=== PATIENT | female | born 1950 | race Hispanic/Latino ===

== ENCOUNTER 2017-04-19 11:16 | Inpatient (IN) | payer MEDICARE ==
[~2017-04-19] VITALS: Ht 165.1 cm; Wt 90.7 kg
[~2017-04-19 11:16] MED LIST: AMOXICILLIN500 MG PO; DICLOFENAC SODI75 MG PO; FLEXERIL PO; LOSARTAN POTAS100 MG PO; MUCINEX600 MG PO; TRIAMCINOLON0.11 EX; ULTRAM50 M1 PO; ZITHROMAX250 MG PO
[2017-04-19] MEDS ORDERED: DICLOFENAC SODI75 MG PO (14:00)
[2017-04-19] MEDS ORDERED: CETIRIZINE10 MG PO (14:01)
[2017-05-05] VITALS (8 sets, daily range): BP systolic 136–165; BP diastolic 53–69
[2017-05-05] MEDS ORDERED: FLOVENT HF44 MCG/ACT (06:56)
[2017-05-06 04:00] VITALS: BP 149/58
[2017-05-06 06:41] LABS: HEMATOCRIT 29.5 % (37.0-47.0); HEMOGLOBIN 9.7 g/dl (12.0-16.0)
[2017-05-06 09:12] VITALS: BP 154/69
[2017-05-06 16:00] VITALS: BP 132/57
[2017-05-06 20:00] VITALS: BP 137/52
[2017-05-07] VITALS: BP 134/67
[2017-05-07 05:05] VITALS: BP 136/75
[2017-05-07 05:14] LABS: HEMOGLOBIN 10.3 g/dl (12.0-16.0)
[2017-05-07 05:32] LABS: ANION GAP 14 (6-22 (CALC)); BUN 11 mg/dL (8-23); BUN/CREATININE RATIO 18 (12-20 (CALC)); CALCIUM 8.1 mg/dL (8.4-10.2); CARBON DIOXIDE 28 mmol/l (22-30); CHLORIDE 102 mmol/l (95-108); CREATININE 0.6 mg/dL (0.5-1.0); GFR > 60 ML/MIN (>=60 (CALC)); GFR FOR AFR.AMER. > 60 ML/MIN (>=60 (CALC)); GLUCOSE 129 mg/dL (82-115); MAGNESIUM 2.1 mg/dL (1.6-2.3); POTASSIUM 4.1 mmol/l (3.5-5.1); SODIUM 139 mmol/l (137-146)
[2017-05-07 07:25] VITALS: BP 147/60
[2017-05-07 16:30] VITALS: BP 153/68
[2017-05-07 19:30] VITALS: BP 109/48
[2017-05-07 23:47] VITALS: BP 121/59
[2017-05-08 04:58] VITALS: BP 134/64
[2017-05-08 05:01] LABS: HEMATOCRIT 30.3 % (37.0-47.0); HEMOGLOBIN 9.9 g/dl (12.0-16.0); MEAN CELL VOLUME 98.1 fL CALC (80.0-100.0); MEAN CORPUSCULAR HGB CONC 32.7 g/L CALC (32.0-36.0); RED BLOOD COUNT 3.09 mill/uL (4.20-5.60); RED CELL DISTRI WIDTH 13.5 % (11.5-15.5)
[2017-05-08 05:26] LABS: ANION GAP 11 (6-22 (CALC)); BUN 10 mg/dL (8-23); BUN/CREATININE RATIO 14 (12-20 (CALC)); CALCIUM 8.1 mg/dL (8.4-10.2); CARBON DIOXIDE 29 mmol/l (22-30); CHLORIDE 102 mmol/l (95-108); CREATININE 0.7 mg/dL (0.5-1.0); GFR > 60 ML/MIN (>=60 (CALC)); GFR FOR AFR.AMER. > 60 ML/MIN (>=60 (CALC)); GLUCOSE 110 mg/dL (82-115); POTASSIUM 4.2 mmol/l (3.5-5.1); SODIUM 137 mmol/l (137-146)
[2017-05-08 07:34] VITALS: BP 125/55
[2017-05-08 11:15] LABS: URINE BILIRUBIN - DIPSTICK NEGATIVE (NEGATIVE); URINE BLOOD DIPSTICK TRACE-INTACT (NEGATIVE); URINE CLARITY CLEAR; URINE COLOR YELLOW; URINE GLUCOSE - DIPSTICK NEGATIVE (NEGATIVE); URINE KETONE NEGATIVE (NEGATIVE); URINE LEUK ESTERASE NEGATIVE (Negative); URINE NITRITE - DIPSTICK NEGATIVE (Negative); URINE PROTEIN - DIPSTICK NEGATIVE (NEG-TRACE); URINE SPECIFIC GRAVITY <=1.005; URINE UROBILINOGEN - DIPSTICK 0.2 E.U./dL (0.2)
[2017-05-08 12:42] VITALS: BP 143/63
[2017-05-08 16:34] VITALS: BP 135/59
[2017-05-08 19:30] VITALS: BP 130/60
[2017-05-09 05:28] VITALS: BP 154/60
[2017-05-09 05:50] LABS: HEMATOCRIT 28.4 % (37.0-47.0); HEMOGLOBIN 9.2 g/dl (12.0-16.0); IMMATURE GRANULOCYTES 0.4 % (0.0-1.0); MEAN CELL VOLUME 97.6 fL CALC (80.0-100.0); MEAN CORPUSCULAR HGB 31.6 pG CALC (26.0-32.0); MEAN CORPUSCULAR HGB CONC 32.4 g/L CALC (32.0-36.0); NEUT# 2.81 thou/uL (2.00-7.15); RED BLOOD COUNT 2.91 mill/uL (4.20-5.60); RED CELL DISTRI WIDTH 13.3 % (11.5-15.5)
[2017-05-09 05:57] LABS: ANION GAP 13 (6-22 (CALC)); BUN 9 mg/dL (8-23); BUN/CREATININE RATIO 15 (12-20 (CALC)); CALCIUM 8.1 mg/dL (8.4-10.2); CARBON DIOXIDE 28 mmol/l (22-30); CHLORIDE 104 mmol/l (95-108); CREATININE 0.6 mg/dL (0.5-1.0); GFR > 60 ML/MIN (>=60 (CALC)); GFR FOR AFR.AMER. > 60 ML/MIN (>=60 (CALC)); GLUCOSE 106 mg/dL (82-115); MAGNESIUM 2.3 mg/dL (1.6-2.3); POTASSIUM 4.3 mmol/l (3.5-5.1); SODIUM 140 mmol/l (137-146)
[2017-05-09 07:33] VITALS: BP 157/58
[2017-05-09] MEDS ORDERED: PANTOPRAZOLE SO40 M1 PO (09:59)
[2017-05-09] MEDS ORDERED: ASPIRIN EC325 MG PO (09:59)
[2017-05-09] MEDS ORDERED: ZOFRAN ODT4 MG PO (09:59)
[2017-05-09] MEDS ORDERED: VITAMIN D2000 UNI2 PO (09:59)
[2017-05-09 11:45] VITALS: BP 131/60
== END 2017-05-09 12:47 | DRG 470 ==
LOC: MS2 05-05 06:41 → MS3 05-05 12:30 → MS2 05-06 10:05
PROVIDERS: Internal Medicine; Nurse Practitioner Family; ADMIT Orthopaedic Surgery; ATTEND Internal Medicine
PROC: 0SRC0J9 Replacement of Right Knee Joint with Synthetic Substitute, Cemented, Open Approach (ICD-10-PCS; principal; 2017-05-05)
DX: M17.0 Bilateral primary osteoarthritis of knee (principal); I10 Essential (primary) hypertension; K21.9 Gastro-esophageal reflux disease without esophagitis; E66.9 Obesity, unspecified; R73.01 Impaired fasting glucose; R50.82 Postprocedural fever; E55.9 Vitamin D deficiency, unspecified; K59.00 Constipation, unspecified; H72.91 Unspecified perforation of tympanic membrane, right ear; Z68.33 Body mass index [BMI] 33.0-33.9, adult
CPT/HCPCS: J2270

== ENCOUNTER 2017-10-21 11:21 | Emergency (ER) | payer MEDICARE ==
[~2017-10-21] VITALS: Ht 165.1 cm; Wt 90.0 kg
[~2017-10-21 11:21] MED LIST changes: +ASPIRIN EC325 MG PO; +CETIRIZINE10 MG PO; +FLOVENT HF44 MCG/ACT; +PANTOPRAZOLE SO40 M1 PO; +VITAMIN D2000 UNI2 PO; +ZOFRAN ODT4 MG PO
[2017-10-21] MEDS ORDERED: HYZAAR1 TA2 PO (12:09)
[2017-10-21 12:55] LABS: HEMOGLOBIN 10.6 g/dl (12.0-16.0); IMMATURE GRANULOCYTES 0.3 % (0.0-1.0); MEAN CORPUSCULAR HGB CONC 32.1 g/L CALC (32.0-36.0); NEUT# 4.06 thou/uL (2.00-7.15); RED BLOOD COUNT 3.66 mill/uL (4.20-5.60); RED CELL DISTRI WIDTH 14.3 % (11.5-15.5)
[2017-10-21 12:56] LABS: MEAN CELL VOLUME 90.2 fL CALC (80.0-100.0)
[2017-10-21 13:22] LABS: ALBUMIN 3.9 g/dL (3.2-5.0); ALKALINE PHOSPHATASE 139 u/l (38-126); ANION GAP 20 (6-22 (CALC)); BILIRUBIN, TOTAL 0.4 mg/dL (0.0-1.4); BUN 19 mg/dL (8-23); BUN/CREATININE RATIO 23 (12-20 (CALC)); C-REACTIVE PROTEIN 4.9 mg/dL (0-0.9); CARBON DIOXIDE 25 mmol/l (22-30); CHLORIDE 100 mmol/l (95-108); CREATININE 0.8 mg/dL (0.5-1.0); GFR > 60 ML/MIN (>=60 (CALC)); GFR FOR AFR.AMER. > 60 ML/MIN (>=60 (CALC)); POTASSIUM 4.2 mmol/l (3.5-5.1); SGOT/AST 24 u/l (9-36); SGPT/ALT 23 u/l (11-66); SODIUM 141 mmol/l (137-146); TOTAL PROTEIN 8.4 g/dL (6.3-8.2)
[2017-10-21] MEDS ORDERED: CLEOCIN150 MG PO (14:14)
[2017-10-21] MEDS ORDERED: TORADOL PO (14:14)
[2017-10-21 14:26] VITALS: BP 139/64
== END 2017-10-21 14:26 | disposition home or self-care (01) ==
LOC: ED 11:21
PROVIDERS: Emergency Medicine
DX: L03.115 Cellulitis of right lower limb (principal); I10 Essential (primary) hypertension; Z98.890 Other specified postprocedural states

== ENCOUNTER → 2018-09-26 | Outpatient (REF) | payer MEDICARE ==
[~2018-09-26] MED LIST changes: +CLEOCIN150 MG PO; +HYZAAR1 TA2 PO; +TORADOL PO
== END | disposition home or self-care (01) ==
LOC: MAMMO 14:22
PROVIDERS: ATTEND Family Medicine
DX: N64.4 Mastodynia (principal)

== ENCOUNTER 2024-05-03 16:11 | Emergency (ER) | payer MEDICARE ==
[2024-05-03] VITALS (14 sets, daily range): BP systolic 125–198; BP diastolic 46–110
[~2024-05-03] VITALS: Ht 165.1 cm; Wt 81.0 kg
[~2024-05-03 16:11] MED LIST changes: +CORTISPORIN OTI10 M2 AU; +OMEPRAZOLE DR40 MG PO; +TOPROL XL25 M1 PO
[2024-05-03 16:43] LABS: BASO% 0.6 % (0-3); EOS% 1.5 % (0-8); HEMATOCRIT 32.9 % (37.0-47.0); HEMOGLOBIN 10.9 g/dl (12.0-16.0); MEAN CELL VOLUME 96.5 fL CALC (80.0-100.0); MEAN CORPUSCULAR HGB CONC 33.1 g/dL CAL (32.0-36.0); MONO% 10.3 % (2-13); NEUT# 3.49 thou/uL (2.00-7.15); NEUT% 66.6 % (42-76); RED BLOOD COUNT 3.41 mill/uL (4.20-5.60); RED CELL DISTRI WIDTH 13.2 % (11.5-15.5)
[2024-05-03 16:56] LABS: ALBUMIN 4.6 g/dL (3.2-5.0); ALKALINE PHOSPHATASE 122 u/l (38-126); ANION GAP 10 (6-22 (CALC)); BUN 22 mg/dL (8-23); BUN/CREATININE RATIO 27 (12-20 (CALC)); CARBON DIOXIDE 23 mmol/l (22-30); CHLORIDE 97 mmol/l (95-108); CREATININE 0.8 mg/dL (0.5-1.0); ESTIMATED GFR 76 ML/MIN (>=90 (CALC)); LIPASE 150 u/l (23-300); POTASSIUM 4.4 mmol/l (3.5-5.1); SGOT/AST 34 u/l (9-36); SODIUM 125 mmol/l (137-146); TOTAL PROTEIN 8.9 g/dL (6.3-8.2)
[2024-05-03 16:57] LABS: BILIRUBIN, TOTAL 0.7 mg/dL (0.02-1.3)
[2024-05-03] MEDS ORDERED: SODIUM CHLORIDE 0.9% 1,000 ML IV ONE (17:55)
[2024-05-03 17:57] LABS: URINE BILIRUBIN - DIPSTICK Negative (NEGATIVE); URINE BLOOD DIPSTICK Negative (NEGATIVE); URINE GLUCOSE - DIPSTICK Negative (NEGATIVE); URINE KETONE Negative (NEGATIVE); URINE LEUK ESTERASE Negative (NEGATIVE); URINE NITRITE - DIPSTICK Negative (Negative); URINE PH 5.5 (4.5-8.0); URINE PROTEIN - DIPSTICK Negative (NEG-TRACE); URINE SPECIFIC GRAVITY <=1.005; URINE UROBILINOGEN - DIPSTICK 0.2 E.U./dL (0.2)
[2024-05-03 17:59] LABS: URINE COLOR Yellow
[2024-05-03] MEDS ORDERED: KETOROLAC TROMETHAMINE 15 MG/ML SDV IV ONE (18:30)
[2024-05-03] MEDS ORDERED: METOCLOPRAMIDE HCL 10 MG/2 ML SDV IV ONE (18:30)
[2024-05-03] MEDS ORDERED: DiphenhydrAMINE HCL 50 MG/ML SDV IV ONE (18:30)
[2024-05-03] MEDS ORDERED: DICYCLOMINE HYD10 MG PO (19:31)
== END 2024-05-03 19:40 | disposition home or self-care (01) ==
LOC: ED 16:11
PROVIDERS: Nurse Practitioner
DX: R51.9 Headache, unspecified (principal); R10.9 Unspecified abdominal pain; E87.1 Hypo-osmolality and hyponatremia; I10 Essential (primary) hypertension; Z20.822 Contact with and (suspected) exposure to COVID-19
CPT/HCPCS: Q9967